=== PATIENT | male | born 1990 | race African-American/Black ===

== ENCOUNTER 2021-11-12 09:26 | Emergency (ER) | payer MEDICAID ==
[~2021-11-12] VITALS: Ht 188 cm; Wt 99.8 kg
[2021-11-12 09:28] VITALS: BP_SYST 152
== END 2021-11-12 11:53 | disposition home or self-care (01) ==
LOC: SED 09:26
DX: R51.9 Headache, unspecified (principal)
CPT/HCPCS: 70450-TC; 76376; 99284